=== PATIENT | male | born 1955 | race Caucasian/White ===

== ENCOUNTER 2017-05-15 11:53 | Emergency (ER) | payer OTHER, BC ==
[~2017-05-15] VITALS: Ht 180.3 cm; Wt 90.0 kg
[~2017-05-15 11:53] MED LIST: ALEVE220 M2 PO; ATENOLOL50 MG PO; AUGMENTIN500TAB PO; EQL POTASSIUM595 MG PO; FLOMAX0.4 M1 PO; HYDROCHLOROTH12.5 MG PO; INVOKANA100 MG PO; KLOR-CON 1010 ME1 PO; LIPITOR10 M1 PO; LISINOPRIL2.5 MG PO; LISINOPRIL20 MG PO; METFORMIN500 MG PO; MG GLUCONATE250 MG PO; MULTIVITAMI1 PO; PREVACID30 M2 OR; PRILOSEC40 MG PO; PROSCAR5 MG PO; REGLAN10 MG OR; SAW PALMETTO450 MG PO; ULTRAM50 M1 OR; VITAMIN C500 M1 PO
[2017-05-15] MEDS ORDERED: KEFLEX500 M1 PO (12:18)
[2017-05-15 12:37] VITALS: BP 131/98
== END 2017-05-15 12:37 | disposition home or self-care (01) | DRG 605 ==
LOC: ED 11:53
DX: S80.811A Abrasion, right lower leg, initial encounter (principal); I10 Essential (primary) hypertension; E11.9 Type 2 diabetes mellitus without complications; W01.0XXA Fall on same level from slipping, tripping and stumbling without subsequent striking against object, initial encounter; Y92.009 Unspecified place in unspecified non-institutional (private) residence as the place of occurrence of the external cause; Z86.73 Personal history of transient ischemic attack (TIA), and cerebral infarction without residual deficits

== ENCOUNTER 2018-04-07 09:14 | Emergency (ER) | payer BC ==
[~2018-04-07] VITALS: Ht 180.3 cm; Wt 100.0 kg
[~2018-04-07 09:14] MED LIST changes: +KEFLEX500 M1 PO
[2018-04-07] MEDS ORDERED: VITAMIN D7 XX (09:40)
[2018-04-07] MEDS ORDERED: VITAMIN A PO (09:40)
[2018-04-07] MEDS ORDERED: ASPIRIN81 MG PO (09:41)
[2018-04-07 09:56] LABS: HEMATOCRIT 50.9 % (39.0-50.0); HEMOGLOBIN 17.3 g/dl (14.0-18.0); IMMATURE GRANULOCYTES 0.5 % (0.0-1.0); MEAN CELL VOLUME 87.3 fL CALC (80.0-100.0); MEAN CORPUSCULAR HGB 29.7 pG CALC (26.0-32.0); NEUT# 4.63 thou/uL (1.82-7.42); RED BLOOD COUNT 5.83 mill/uL (4.70-6.10); RED CELL DISTRI WIDTH 12.6 % (11.5-15.5)
[2018-04-07 10:20] LABS: ANION GAP 13 (6-22 (CALC)); BUN 19 mg/dL (8-23); BUN/CREATININE RATIO 23 (12-20 (CALC)); CARBON DIOXIDE 25 mmol/l (22-30); CHLORIDE 104 mmol/l (95-108); CREATININE 0.8 mg/dL (0.7-1.3); GFR > 60 ML/MIN (>=60 (CALC)); GFR FOR AFR.AMER. > 60 ML/MIN (>=60 (CALC)); POTASSIUM 4.5 mmol/l (3.5-5.1); SODIUM 138 mmol/l (137-146)
[2018-04-07] MEDS ORDERED: MECLIZINE25 M1 PO (11:18)
[2018-04-07] MEDS ORDERED: ONDANSETRON4 MG PO (11:19)
[2018-04-07 11:26] VITALS: BP 109/60
== END 2018-04-07 11:40 | disposition home or self-care (01) | DRG 149 ==
LOC: ED 09:14
PROVIDERS: Family Medicine
DX: R42 Dizziness and giddiness (principal); I10 Essential (primary) hypertension; R55 Syncope and collapse

== ENCOUNTER 2019-09-11 20:14 | Emergency (ER) | payer OTHER ==
[~2019-09-11] VITALS: Ht 180.3 cm; Wt 100.0 kg
[~2019-09-11 20:14] MED LIST changes: +ASPIRIN81 MG PO; +MECLIZINE25 M1 PO; +ONDANSETRON4 MG PO; +VITAMIN A PO; +VITAMIN D7 XX
[2019-09-11 21:45] VITALS: BP 104/72
[2019-09-11 21:51] LABS: HEMATOCRIT 56.2 % (39.0-50.0); HEMOGLOBIN 18.7 g/dl (14.0-18.0); IMMATURE GRANULOCYTES 0.4 % (0.0-5.0); MEAN CELL VOLUME 88.8 fL CALC (80.0-100.0); MEAN CORPUSCULAR HGB 29.5 pG CALC (26.0-32.0); MEAN CORPUSCULAR HGB CONC 33.3 g/L CALC (32.0-36.0); NEUT# 14.75 thou/uL (1.82-7.42); RED BLOOD COUNT 6.33 mill/uL (4.70-6.10); RED CELL DISTRI WIDTH 13.7 % (11.5-15.5)
[2019-09-11 21:53] LABS: URINE BILIRUBIN - DIPSTICK NEGATIVE (NEGATIVE); URINE BLOOD DIPSTICK NEGATIVE (NEGATIVE); URINE COLOR YELLOW; URINE GLUCOSE - DIPSTICK >=1000 mg/dL (NEGATIVE); URINE KETONE 40 mg/dL (NEGATIVE); URINE LEUK ESTERASE NEGATIVE (NEGATIVE); URINE NITRITE - DIPSTICK NEGATIVE (Negative); URINE PROTEIN - DIPSTICK NEGATIVE (NEG-TRACE); URINE SPECIFIC GRAVITY 1.025; URINE UROBILINOGEN - DIPSTICK 0.2 E.U./dL (0.2)
[2019-09-11 22:14] LABS: AMYLASE 68 u/l (30-110); ANION GAP 21 (6-22 (CALC)); BUN 28 mg/dL (8-23); BUN/CREATININE RATIO 27 (12-20 (CALC)); CARBON DIOXIDE 24 mmol/l (22-30); CHLORIDE 102 mmol/l (95-108); GFR > 60 ML/MIN (>=60 (CALC)); GFR FOR AFR.AMER. > 60 ML/MIN (>=60 (CALC)); LIPASE 64 u/l (23-300); SGOT/AST 29 u/l (19-48); SODIUM 142 mmol/l (137-146)
[2019-09-11 22:15] LABS: ALKALINE PHOSPHATASE 64 u/l (38-126); TOTAL PROTEIN 8.2 g/dL (6.3-8.2)
== END 2019-09-12 03:31 | disposition home or self-care (01) | DRG 392 ==
LOC: ED 20:14
PROVIDERS: Emergency Medicine
DX: R11.2 Nausea with vomiting, unspecified (principal); R19.7 Diarrhea, unspecified; E11.9 Type 2 diabetes mellitus without complications; I10 Essential (primary) hypertension
CPT/HCPCS: S0164

== ENCOUNTER 2020-03-25 10:27 | Day surgery (SDC) | payer BC ==
[~2020-03-25 10:27] MED LIST changes: +ALEVE220 M1 PO; +EQ ALLERGY50 MCG/ACT; +LIPITOR20 M1 PO; +LISINOPRIL10 MG PO; +LOPRESSOR50 M2 PO; +MULTI VIT PO; +SAW PALMETTO1 CAP PO; +VIAGRA100 MG PO; +VITAMIN D35000 UNIT PO; -VITAMIN D7 XX
[2020-03-25] MEDS ORDERED: TORADOL PO (13:01)
[2020-03-25 14:10] VITALS: BP 127/75
== END 2020-03-25 14:17 | disposition home or self-care (01) | DRG 355 ==
LOC: ORM 10:27
PROVIDERS: ATTEND Surgery
PROC: 0WQF0ZZ Repair Abdominal Wall, Open Approach (ICD-10-PCS; principal; 2020-03-25)
DX: K42.0 Umbilical hernia with obstruction, without gangrene (principal); I10 Essential (primary) hypertension; Z86.73 Personal history of transient ischemic attack (TIA), and cerebral infarction without residual deficits; Z11.59 Encounter for screening for other viral diseases
CPT/HCPCS: J0131; J2710

== ENCOUNTER 2020-11-26 22:08 | Emergency (ER) | payer BC ==
[~2020-11-26] VITALS: Ht 180.3 cm; Wt 114.0 kg
[~2020-11-26 22:08] MED LIST changes: +TORADOL PO
[2020-11-26] MEDS ORDERED: ATENOLOL50 MG PO (23:20)
[2020-11-26 23:56] LABS: IMMATURE GRANULOCYTES 2.4 % (0.0-5.0); MEAN CELL VOLUME 90.8 fL CALC (80.0-100.0); MEAN CORPUSCULAR HGB 30.1 pG CALC (26.0-32.0); MEAN CORPUSCULAR HGB CONC 33.1 g/dL CAL (32.0-36.0); NEUT# 7.61 thou/uL (1.82-7.42); RED BLOOD COUNT 3.06 mill/uL (4.70-6.10); RED CELL DISTRI WIDTH 14.3 % (11.5-15.5)
[2020-11-26 23:59] LABS: HEMATOCRIT 27.8 % (39.0-50.0); HEMOGLOBIN 9.2 g/dl (14.0-18.0)
[2020-11-27 00:16] LABS: ALKALINE PHOSPHATASE 49 u/l (38-126); AMYLASE 85 u/l (30-110); BUN 12 mg/dL (8-23); BUN/CREATININE RATIO 13 (12-20 (CALC)); CARBON DIOXIDE 28 mmol/l (22-30); CHLORIDE 98 mmol/l (95-108); CREATININE 0.9 mg/dL (0.7-1.3); GFR > 60 ML/MIN (>=60 (CALC)); GFR FOR AFR.AMER. > 60 ML/MIN (>=60 (CALC)); LIPASE 289 u/l (23-300); SGOT/AST 38 u/l (19-48)
[2020-11-27 00:17] LABS: ANION GAP 10 (6-22 (CALC)); BILIRUBIN, TOTAL 0.5 mg/dL (0.0-1.4); POTASSIUM 3.9 mmol/l (3.5-5.1); SODIUM 132 mmol/l (137-146); TOTAL PROTEIN 5.2 g/dL (6.3-8.2)
[2020-11-27 02:47] LABS: URINE BILIRUBIN - DIPSTICK NEGATIVE (NEGATIVE); URINE BLOOD DIPSTICK LARGE (NEGATIVE); URINE COLOR YELLOW; URINE GLUCOSE - DIPSTICK NEGATIVE (NEGATIVE); URINE KETONE 15 mg/dL (NEGATIVE); URINE LEUK ESTERASE TRACE (NEGATIVE); URINE NITRITE - DIPSTICK NEGATIVE (Negative); URINE PROTEIN - DIPSTICK NEGATIVE (NEG-TRACE); URINE UROBILINOGEN - DIPSTICK 0.2 E.U./dL (0.2)
[2020-11-27 03:20] LABS: URINE BACTERIA FEW hpf; URINE SQUAMOUS EPITHELIAL CELL FEW EPI/hpf (0-FEW)
[2020-11-27 03:39] VITALS: BP 140/78
[2020-11-27] MEDS ORDERED: REGLAN10 MG PO (04:36)
== END 2020-11-27 05:16 | disposition home or self-care (01) | DRG 390 ==
LOC: ED 22:08
PROVIDERS: Family Medicine
DX: K56.7 Ileus, unspecified (principal); I10 Essential (primary) hypertension; E11.9 Type 2 diabetes mellitus without complications; C61 Malignant neoplasm of prostate; Z86.73 Personal history of transient ischemic attack (TIA), and cerebral infarction without residual deficits; Z96.0 Presence of urogenital implants; Z90.79 Acquired absence of other genital organ(s)
CPT/HCPCS: Q9967

== ENCOUNTER 2021-01-19 04:16 | Emergency (ER) | payer BC ==
[~2021-01-19] VITALS: Ht 180.3 cm; Wt 113.0 kg
[~2021-01-19 04:16] MED LIST changes: +REGLAN10 MG PO
[2021-01-19] MEDS ORDERED: MULTIVITAMI9 PO (04:41)
[2021-01-19] MEDS ORDERED: FINASTERIDE5 MG PO (04:41)
[2021-01-19] MEDS ORDERED: VITAMIN C + PO (04:42)
[2021-01-19 05:08] LABS: IMMATURE GRANULOCYTES 0.2 % (0.0-5.0); MEAN CORPUSCULAR HGB 26.4 pG CALC (26.0-32.0); NEUT# 6.6 thou/uL (1.82-7.42); RED BLOOD COUNT 4.5 mill/uL (4.70-6.10); RED CELL DISTRI WIDTH 13.9 % (11.5-15.5)
[2021-01-19 05:09] LABS: URINE BILIRUBIN - DIPSTICK NEGATIVE (NEGATIVE); URINE BLOOD DIPSTICK LARGE (NEGATIVE); URINE COLOR YELLOW; URINE GLUCOSE - DIPSTICK NEGATIVE (NEGATIVE); URINE KETONE NEGATIVE (NEGATIVE); URINE LEUK ESTERASE TRACE (NEGATIVE); URINE PH 5.5 (4.5-8.0); URINE PROTEIN - DIPSTICK 30 mg/dL (NEG-TRACE); URINE UROBILINOGEN - DIPSTICK 0.2 E.U./dL (0.2)
[2021-01-19 05:10] LABS: HEMATOCRIT 37.2 % (39.0-50.0); HEMOGLOBIN 11.9 g/dl (14.0-18.0); MEAN CELL VOLUME 82.7 fL CALC (80.0-100.0)
[2021-01-19 05:10] LABS: URINE NITRITE - DIPSTICK POSITIVE (Negative)
[2021-01-19 05:22] LABS: ALKALINE PHOSPHATASE 49 u/l (38-126); ANION GAP 12 (6-22 (CALC)); BILIRUBIN, TOTAL 0.5 mg/dL (0.0-1.4); BUN 17 mg/dL (8-23); BUN/CREATININE RATIO 21 (12-20 (CALC)); CARBON DIOXIDE 25 mmol/l (22-30); CHLORIDE 103 mmol/l (95-108); CREATININE 0.8 mg/dL (0.7-1.3); GFR > 60 ML/MIN (>=60 (CALC)); GFR FOR AFR.AMER. > 60 ML/MIN (>=60 (CALC)); MAGNESIUM 1.6 mg/dL (1.6-2.3); POTASSIUM 4.2 mmol/l (3.5-5.1); SGOT/AST 24 u/l (19-48); SODIUM 136 mmol/l (137-146)
[2021-01-19 05:26] LABS: URINE BACTERIA MANY hpf; URINE MUCUS FEW hpf (NONE-FEW); URINE SQUAMOUS EPITHELIAL CELL FEW EPI/hpf (0-FEW); URINE WBC 20-50 WBC/hpf (0-5)
[2021-01-19 05:49] LABS: ALBUMIN 3.8 g/dL (3.2-5.0); TOTAL PROTEIN 6.9 g/dL (6.3-8.2)
[2021-01-19 05:52] LABS: TSH, 3RD GENERATION 0.81 uIU/mL (0.47 - 4.68)
[2021-01-19] MEDS ORDERED: BACTRIM DS1 TAB PO (06:13)
[2021-01-19 06:20] VITALS: BP 180/90
== END 2021-01-19 06:28 | disposition home or self-care (01) | DRG 690 ==
LOC: ED 04:16
PROVIDERS: Family Medicine
DX: N39.0 Urinary tract infection, site not specified (principal); B96.1 Klebsiella pneumoniae [K. pneumoniae] as the cause of diseases classified elsewhere; E11.9 Type 2 diabetes mellitus without complications; I10 Essential (primary) hypertension; Z86.73 Personal history of transient ischemic attack (TIA), and cerebral infarction without residual deficits; Z86.16 Personal history of COVID-19

== ENCOUNTER 2021-01-24 | Emergency (ER) | payer BC ==
[~2021-01-24] MED LIST changes: +BACTRIM DS1 TAB PO; +FINASTERIDE5 MG PO; +MULTIVITAMI9 PO; +VITAMIN C + PO
[2021-01-24] MEDS ORDERED: OMNI-PAC300 MG PO (17:53)
[2021-01-24 18:08] LABS: GFR > 60 ML/MIN (>=60 (CALC)); GFR FOR AFR.AMER. > 60 ML/MIN (>=60 (CALC))
[2021-01-24 18:08] LABS: URINE BILIRUBIN - DIPSTICK NEGATIVE (NEGATIVE); URINE BLOOD DIPSTICK SMALL (NEGATIVE); URINE COLOR YELLOW; URINE GLUCOSE - DIPSTICK NEGATIVE (NEGATIVE); URINE KETONE NEGATIVE (NEGATIVE); URINE LEUK ESTERASE NEGATIVE (NEGATIVE); URINE PROTEIN - DIPSTICK NEGATIVE (NEG-TRACE); URINE SPECIFIC GRAVITY 1.025; URINE UROBILINOGEN - DIPSTICK 0.2 E.U./dL (0.2)
[2021-01-24 18:10] LABS: URINE NITRITE - DIPSTICK NEGATIVE (Negative)
[2021-01-24 18:12] LABS: HEMATOCRIT 39.7 % (39.0-50.0); HEMOGLOBIN 12.3 g/dl (14.0-18.0); IMMATURE GRANULOCYTES 0.6 % (0.0-5.0); MEAN CELL VOLUME 82.4 fL CALC (80.0-100.0); MEAN CORPUSCULAR HGB 25.5 pG CALC (26.0-32.0); NEUT# 7.86 thou/uL (1.82-7.42); RED BLOOD COUNT 4.82 mill/uL (4.70-6.10); RED CELL DISTRI WIDTH 14.1 % (11.5-15.5)
[2021-01-24 18:18] LABS: URINE WBC 0-2 WBC/hpf (0-5)
[2021-01-24 18:28] LABS: ALBUMIN 4.3 g/dL (3.2-5.0); ALKALINE PHOSPHATASE 51 u/l (38-126); ANION GAP 13 (6-22 (CALC)); BILIRUBIN, TOTAL 0.5 mg/dL (0.0-1.4); BUN 17 mg/dL (8-23); BUN/CREATININE RATIO 17 (12-20 (CALC)); CARBON DIOXIDE 22 mmol/l (22-30); CHLORIDE 103 mmol/l (95-108); GFR > 60 ML/MIN (>=60 (CALC)); GFR FOR AFR.AMER. > 60 ML/MIN (>=60 (CALC)); LIPASE 83 u/l (23-300); POTASSIUM 4.6 mmol/l (3.5-5.1); SGOT/AST 31 u/l (19-48); SODIUM 134 mmol/l (137-146); TOTAL PROTEIN 7.5 g/dL (6.3-8.2)
[2021-01-24] MEDS ORDERED: VISTARIL 50MG C50 M1 PO (19:34)
[2021-01-24] MEDS ORDERED: TAMSULOSIN0.4 MG PO (19:34)
[2021-04-11] MEDS ORDERED: D3400 UNIT PO (09:01)
== END 2021-01-24 20:00 | disposition home or self-care (01) | DRG 694 ==
PROVIDERS: Family Medicine
DX: N21.0 Calculus in bladder (principal); N39.0 Urinary tract infection, site not specified; I10 Essential (primary) hypertension; E11.9 Type 2 diabetes mellitus without complications; Z85.46 Personal history of malignant neoplasm of prostate; Z90.79 Acquired absence of other genital organ(s); Z86.16 Personal history of COVID-19
CPT/HCPCS: Q9967

== ENCOUNTER 2021-04-12 07:50 | Day surgery (SDC) | payer BC ==
[~2021-04-12] VITALS: Ht 177.8 cm; Wt 111.1 kg
[~2021-04-12 07:50] MED LIST changes: +D3400 UNIT PO; +OMNI-PAC300 MG PO; +TAMSULOSIN0.4 MG PO; +VISTARIL 50MG C50 M1 PO
[2021-04-12 10:58] VITALS: BP 114/65
== END 2021-04-12 11:37 | disposition home or self-care (01) | DRG 670 ==
LOC: ORM 07:50
PROVIDERS: ATTEND Urology
PROC: 0TNC8ZZ Release Bladder Neck, Via Natural or Artificial Opening Endoscopic (ICD-10-PCS; principal; 2021-04-12)
DX: N32.0 Bladder-neck obstruction (principal); R33.8 Other retention of urine; R32 Unspecified urinary incontinence; I10 Essential (primary) hypertension; E11.9 Type 2 diabetes mellitus without complications; E78.00 Pure hypercholesterolemia, unspecified; Z85.46 Personal history of malignant neoplasm of prostate; Z90.79 Acquired absence of other genital organ(s); N52.31 Erectile dysfunction following radical prostatectomy; Z87.891 Personal history of nicotine dependence; Z80.42 Family history of malignant neoplasm of prostate; Z86.73 Personal history of transient ischemic attack (TIA), and cerebral infarction without residual deficits
CPT/HCPCS: C1769

== ENCOUNTER 2022-01-13 00:55 | Emergency (ER) | payer BC ==
[2022-01-13] VITALS (21 sets, daily range): BP systolic 82–135; BP diastolic 34–89
[~2022-01-13] VITALS: Ht 177.8 cm; Wt 118.0 kg
[2022-01-13 01:39] LABS: IMMATURE GRANULOCYTES 0.4 % (0.0-5.0); MEAN CORPUSCULAR HGB 30.5 pG CALC (26.0-32.0); MEAN CORPUSCULAR HGB CONC 33.1 g/dL CAL (32.0-36.0); NEUT# 8.27 thou/uL (1.82-7.42); RED BLOOD COUNT 5.12 mill/uL (4.70-6.10); RED CELL DISTRI WIDTH 13.2 % (11.5-15.5)
[2022-01-13 01:43] LABS: HEMATOCRIT 47.2 % (39.0-50.0); HEMOGLOBIN 15.6 g/dl (14.0-18.0); MEAN CELL VOLUME 92.2 fL CALC (80.0-100.0)
[2022-01-13 02:02] LABS: ALBUMIN 4.1 g/dL (3.2-5.0); ALKALINE PHOSPHATASE 70 u/l (38-126); AMYLASE 79 u/l (30-110); ANION GAP 21 (6-22 (CALC)); BILIRUBIN, TOTAL 0.6 mg/dL (0.0-1.4); BUN 19 mg/dL (8-23); BUN/CREATININE RATIO 19 (12-20 (CALC)); CARBON DIOXIDE 19 mmol/l (22-30); CHLORIDE 102 mmol/l (95-108); GFR > 60 ML/MIN (>=60 (CALC)); GFR FOR AFR.AMER. > 60 ML/MIN (>=60 (CALC)); LIPASE 106 u/l (23-300); POTASSIUM 5.1 mmol/l (3.5-5.1); SODIUM 137 mmol/l (137-146); TOTAL PROTEIN 7.2 g/dL (6.3-8.2)
[2022-01-13 02:05] LABS: SGOT/AST 109 u/l (19-48)
[2022-01-13 02:14] LABS: MYOGLOBIN 25 ng/mL (0 - 121)
[2022-01-13 05:11] LABS: URINE BILIRUBIN - DIPSTICK NEGATIVE (NEGATIVE); URINE BLOOD DIPSTICK TRACE-INTACT (NEGATIVE); URINE COLOR YELLOW; URINE GLUCOSE - DIPSTICK NEGATIVE (NEGATIVE); URINE KETONE NEGATIVE (NEGATIVE); URINE LEUK ESTERASE NEGATIVE (NEGATIVE); URINE PH 5.5 (4.5-8.0); URINE PROTEIN - DIPSTICK NEGATIVE (NEG-TRACE); URINE SPECIFIC GRAVITY 1.015; URINE UROBILINOGEN - DIPSTICK 0.2 E.U./dL (0.2)
[2022-01-13 05:12] LABS: URINE NITRITE - DIPSTICK NEGATIVE (Negative)
[2022-01-13] MEDS ORDERED: ONDANSETRON4 MG PO (05:54)
[2022-01-13] MEDS ORDERED: PREVACID30 M3 PO (05:54)
== END 2022-01-13 06:56 | disposition home or self-care (01) | DRG 392 ==
LOC: ED 00:55
PROVIDERS: Emergency Medicine
DX: A08.4 Viral intestinal infection, unspecified (principal); I10 Essential (primary) hypertension; E11.9 Type 2 diabetes mellitus without complications; K76.0 Fatty (change of) liver, not elsewhere classified; Z86.73 Personal history of transient ischemic attack (TIA), and cerebral infarction without residual deficits; Z86.16 Personal history of COVID-19; Z20.822 Contact with and (suspected) exposure to COVID-19
CPT/HCPCS: Q9967; S0164

== ENCOUNTER 2022-10-04 07:27 | Day surgery (SDC) | payer BC ==
[~2022-10-04] VITALS: Ht 177.8 cm; Wt 117.9 kg
[~2022-10-04 07:27] MED LIST changes: +CARAFATE PO; +INVOKANA300 MG PO; +LANSOPRAZOLE30 MG PO; +MECLIZINE12.5 M1 PO; +OMEPRAZOLE DR40 MG PO; +PREVACID30 M3 PO; +SOLIFENACIN SUCC5 MG
[2022-10-04] MEDS ORDERED: PERCOCET 5/321 COMBO PO (09:22)
[2022-10-04] MEDS ORDERED: TORADOL PO (10:09)
[2022-10-04 10:38] VITALS: BP 112/70
== END 2022-10-04 10:50 | disposition home or self-care (01) | DRG 419 ==
LOC: ORM 07:27 → ENDO 08:00 → ORM 10:50
PROVIDERS: ATTEND Surgery
PROC: 0FT44ZZ Resection of Gallbladder, Percutaneous Endoscopic Approach (ICD-10-PCS; principal; 2022-10-04)
DX: K80.10 Calculus of gallbladder with chronic cholecystitis without obstruction (principal); I10 Essential (primary) hypertension; E11.9 Type 2 diabetes mellitus without complications; K21.9 Gastro-esophageal reflux disease without esophagitis
CPT/HCPCS: J0131; J1610; Q9967